=== PATIENT | female | born 1970 | race Caucasian/White ===

== ENCOUNTER 2022-03-11 17:17 | Emergency (ER) | payer OTHER ==
[~2022-03-11] VITALS: Ht 162.6 cm; Wt 63.5 kg
[2022-03-11 18:55] VITALS: BP 110/77
[2022-03-11] MEDS ORDERED: KETOROLAC 30MG VIAL (30MG/ML) IM ONE (20:00)
[2022-03-11] MEDS ORDERED: CYCLOBENZAPRINE HCL 10 MG TABLET PO ONE (20:00)
[2022-03-11 20:29] LABS: BASOPHILS % (AUTO) 0.6 % (0.0-5.0); EOSINOPHILS % (AUTO) 2.1 % (0.0-8.0); HEMATOCRIT 38.5 % (36-48); LYMPHOCYTES % (AUTO) 23.6 % (21.0-51.0); MEAN CORPUSCULAR HEMOGLOBIN 27.3 pg (27.0-33.0); MEAN CORPUSCULAR VOLUME 82.8 fL (79-99); MONOCYTES % (AUTO) 8.4 % (3.0-13.0); NEUTROPHILS % (AUTO) 65.2 % (40.0-77.0); PLATELET COUNT (AUTO) 469 K/uL (130-400); RED BLOOD CELL COUNT(AUTO) 4.65 MIL/uL (4.00-5.50); RED CELL DISTRIBUTION WIDTH 16.1 % (11.0-15.5)
[2022-03-11 20:46] LABS: CREATININE 1.3 mg/dL (0.5-1.5); POTASSIUM 3.3 mmol/L (3.5-5.1)
[2022-03-11 20:51] LABS: ALBUMIN 3.5 g/dL (3.5-5.0); TOTAL PROTEIN, SERUM 7.3 g/dL (6.0-8.3)
[2022-03-11] MEDS ORDERED: POTASSIUM BICARB/CIT AC 25 MEQ TABLET.EFF PO ONE (22:00)
== END 2022-03-11 22:18 | disposition home or self-care (01) ==
LOC: EDH 17:17
DX: S46.911A Strain of unspecified muscle, fascia and tendon at shoulder and upper arm level, right arm, initial encounter (principal); Z88.0 Allergy status to penicillin; X58.XXXA Exposure to other specified factors, initial encounter; Y93.89 Activity, other specified; Y92.89 Other specified places as the place of occurrence of the external cause; Y99.8 Other external cause status
CPT/HCPCS: 99284; 80053; 85025; 36415; 73030; 96372; J1885

== ENCOUNTER 2022-03-16 07:55 | Emergency (ER) | payer OTHER ==
[~2022-03-16] VITALS: Ht 162.6 cm; Wt 72.6 kg
[2022-03-16 07:57] VITALS: BP 141/82
[2022-03-16 08:31] LABS: BASOPHILS % (AUTO) 0.6 % (0.0-5.0); EOSINOPHILS % (AUTO) 1.1 % (0.0-8.0); HEMATOCRIT 35.3 % (36-48); LYMPHOCYTES % (AUTO) 10.6 % (21.0-51.0); MEAN CORPUSCULAR HEMOGLOBIN 27.6 pg (27.0-33.0); MEAN CORPUSCULAR HGB CONC 33.4 g/dL (32.0-36.0); MEAN CORPUSCULAR VOLUME 82.5 fL (79-99); MONOCYTES % (AUTO) 8.9 % (3.0-13.0); NEUTROPHILS % (AUTO) 78.4 % (40.0-77.0); PLATELET COUNT (AUTO) 355 K/uL (130-400); RED BLOOD CELL COUNT(AUTO) 4.28 MIL/uL (4.00-5.50); WHITE BLOOD COUNT (AUTO) 5.3 K/uL (4.8-10.8)
[2022-03-16 08:38] LABS: CREATININE 0.9 mg/dL (0.5-1.5); POTASSIUM 3.4 mmol/L (3.5-5.1)
[2022-03-16 08:43] LABS: ALBUMIN 3.4 g/dL (3.5-5.0); TOTAL PROTEIN, SERUM 7.1 g/dL (6.0-8.3)
[2022-03-16] MEDS ORDERED: ACETAMINOPHEN 500 MG TABLET PO ONE (09:00)
[2022-03-16] MEDS ORDERED: IBUP-2070 PO (09:36)
[2022-03-16] MEDS ORDERED: POTASSIUM BICARB/CIT AC 25 MEQ TABLET.EFF PO ONE (10:00)
[2022-03-16 10:16] LABS: APPEARANCE,URINE CLEAR (CLEAR); BILIRUBIN,URINE NEGATIVE (NEGATIVE); COLOR,URINE COLORLESS (YELLOW); GLUCOSE, URINE (UA) NEGATIVE (NEGATIVE); KETONES,URINE NEGATIVE (NEGATIVE); LEUKOCYTE ESTERASE ,URINE NEGATIVE Leu/uL (NEGATIVE); NITRATE,URINE NEGATIVE (NEGATIVE); OCCULT BLOOD,URINE SMALL (NEGATIVE); PH,URINE 6.5 (5.0-8.0); PROTEIN,URINE NEGATIVE (NEGATIVE); UROBILINOGEN,URINE 0.2 mg/dL (0.2-1.0)
[2022-03-16 10:17] LABS: SQUAMOUS EPITHELIAL CELL,UR RARE /HPF (0-2); WBC,URINE 0-1 /HPF (0-1)
== END 2022-03-16 10:07 | disposition home or self-care (01) ==
LOC: EDH 07:55
DX: G89.29 Other chronic pain (principal); M54.2 Cervicalgia; M54.9 Dorsalgia, unspecified; Z59.00 Homelessness unspecified; Z88.0 Allergy status to penicillin
CPT/HCPCS: 36415; 80053; 81001; 85025

== ENCOUNTER 2022-06-15 17:55 | Emergency (ER) | payer MEDICAID, OTHER ==
[~2022-06-15] VITALS: Ht 152.4 cm; Wt 74.8 kg
[~2022-06-15 17:55] MED LIST: IBUP-2070 PO
[2022-06-15 18:13] VITALS: BP 136/76
[2022-06-15] MEDS ORDERED: IBUP-2077 PO (18:41)
[2022-06-15] MEDS ORDERED: CYCL10TA16 PO (18:41)
[2022-06-16] MEDS ORDERED: CETI10CA5 PO (16:38)
[2022-06-16] MEDS ORDERED: PRED20TA3 PO (16:38)
== END 2022-06-15 18:45 | disposition home or self-care (01) ==
LOC: EDH 17:55
DX: M43.6 Torticollis (principal); M62.838 Other muscle spasm; R51.9 Headache, unspecified; Z88.0 Allergy status to penicillin

== ENCOUNTER 2022-06-16 14:33 | Emergency (ER) | payer OTHER ==
[~2022-06-16] VITALS: Ht 162.6 cm; Wt 72.6 kg
[~2022-06-16 14:33] MED LIST changes: +CYCL10TA16 PO; +IBUP-2077 PO
[2022-06-16 15:19] VITALS: BP 157/75
[2022-06-16] MEDS ORDERED: PRED20TA3 PO (16:38)
[2022-06-16] MEDS ORDERED: CETI10CA5 PO (16:38)
== END 2022-06-16 16:54 | disposition home or self-care (01) ==
LOC: EDH 14:33
DX: L50.9 Urticaria, unspecified (principal); Z79.1 Long term (current) use of non-steroidal anti-inflammatories (NSAID); Z79.899 Other long term (current) drug therapy; Z88.0 Allergy status to penicillin

== ENCOUNTER 2022-06-21 15:47 | Emergency (ER) | payer OTHER ==
[~2022-06-21] VITALS: Ht 162.6 cm; Wt 81.6 kg
[~2022-06-21 15:47] MED LIST changes: +CETI10CA5 PO; +PRED20TA3 PO
[2022-06-21 15:53] VITALS: BP 160/86
== END 2022-06-21 16:31 | disposition home or self-care (01) ==
LOC: EDH 15:47
DX: L29.9 Pruritus, unspecified (principal); R09.89 Other specified symptoms and signs involving the circulatory and respiratory systems; Z79.52 Long term (current) use of systemic steroids; Z79.899 Other long term (current) drug therapy; Z88.0 Allergy status to penicillin